=== PATIENT | male | born 1945 | race Caucasian/White ===

== ENCOUNTER 2024-08-08 19:38 | Observation (INO) | payer OTHER, SELFPAY ==
[2024-08-08] VITALS (19 sets, daily range): BP systolic 107–167; BP diastolic 38–99; BMI 39.5; BMI 37.1
[2024-08-08 12:03] LABS: % Basophils 0.3 % (0-2); % Eosinophils 3.4 % (0-6); % Immature Granulocytes 0.4 % (0-0.5); % Lymphocytes 20.5 % (20.5-51.1); % Monocytes 5.2 % (1.7-9.3); % Neutrophils 70.2 % (42.2-75.2); Absolute Eosinophils 0.3 10^3/uL (0-0.7); Absolute Lymphocytes 1.9 10^3/uL (1.2-3.4); Absolute Monocytes 0.5 10^3/uL (0.1-0.6); Absolute Neutrophils 6.5 10^3/uL (1.4-6.5); Hemoglobin 11.7 g/dL (13.0-18.0); Mean Corp Hgb Conc. 33.4 g/dL (33.0-37.0); Mean Corpuscular Hgb 28.4 pg (27.0-31.0); Mean Platelet Volume 9.5 fL (7.4-10.4); Nucleated Red Blood Cells % 0 % (-); Platelet Count 264 10^3/uL (130-400); Red Blood Cell Count 4.12 10^6/uL (4.70-6.10); Red Cell Dist. Width 13.3 % (11.5-14.5); White Blood Cell Count 9.3 10^3/uL (4.8-10.8)
[2024-08-08 12:11] LABS: ALT (SGPT) 27 U/L (0-50); AST (SGOT) 24 U/L (17-59); Albumin 3.5 g/dl (3.5-5.0); Alkaline Phosphatase 78 U/L (38-126); Blood Urea Nitrogen 25 mg/dl (9-20); Carbon Dioxide 30 mmol/L (22-30); Chloride 100 mmol/L (98-107); Estimated Creatinine Clearance 86 ml/min; Glucose 248 mg/dl (70-99); Potassium 3.5 mmol/L (3.5-5.1); Sodium 140 mmol/L (135-145); Total Bilirubin 0.3 mg/dl (0.2-1.3); Total Protein 6.5 g/dl (6.3-8.2); eGFR > 60.00
[2024-08-08 12:14] LABS: COVID-19 Antigen Negative (Negative)
[2024-08-08] MEDS: NSS 500 IV (16:26)
--- NOTE | 2024-08-08 16:54 | CM ---
Cm was consulted for placement. Due to PT not being available for placement, CM is unable to move forward with placement efforts. CM spoke with patient and son's in room. Patient lives with son who provides supervision. Son's feel that patient is
unable to care for himself and they are unable to provide care.
CM discussed SNF options. Son will consult with family regarding possible acceptable options for placement. CM will continue to follow.
--- NOTE | 2024-08-08 18:26 | ED.GENMED ---
History of Present Illness
General
Chief Complaint: Weakness
Source: patient and family
Time Seen by Provider: 08/08/24 12:51
History of Present Illness
History of Present Illness:
79-year-old male presents to the emergency room with family due to recent URI symptoms and feeling weak all over. Patient states his left leg keeps giving out. No fever or chills. Patient does not have weakness but states he just has discomfort
his knee. Patient denies any other areas of weakness numbness or tingling.
Past History
Past History
ED Past Medical History: Arrthythmia (Paroxysmal atrial fibrillation), HTN and IDDM
ED Past Surgical History: Cardiac (Radiofrequency ablation for atrial fibrillation 5-6 years ago at [facility])
Social History
Tobacco: Non-smoker
Alcohol: Occasional (rare)
Living: with family
Employment: Retired
Family History
Family History: Other (Noncontributory)
Phy Exam
Physical Exam
Physical Exam:
General: Awake, Alert, Oriented X3. No acute distress.
Vitals: unremarkable
Head: Atraumatic
Eyes: Pupils equal, EOMI
Throat: Airway intact, no exudates
Neck: Trachea midline
Lungs: Clear and equal b/l
Heart: Regular rate, no murmurs
Abd: Soft, Nontender, No pulsatile mass
Neuro: Cranial nerves intact, muscle strength equal bilaterally, cerebellar exam normal
Skin: Warm, dry, no rash
Extremities: pulses equal b/l, no edema
Course
Orders/Labs/Results
Orders:
Orders
08/08/24 11:49
COVID-19 Antigen Urgent
Source: Nasal Swab
Complete Blood Count/With Diff Urgent
Comprehensive Metabolic Panel Urgent
Influenza A+B Rapid Molecular Urgent
[place] Source: Nasal Swab
Specimen Description:
08/08/24 13:01
CT Head W/o Iv Contrast Urgent
Comment:
Reason For Exam: frequent falls
CR Chest - 2 Views Urgent
Comment:
Reason For Exam: progressive weakness
Knee, Right 4 or More Views [CR Knee- Right 4 Or More View*] Urgent
Comment:
Reason For Exam: pain, knee giving out
08/08/24 16:15
0.9% Sodium Chloride 500 ml [Nss] 500 ml IV BOLUS
08/08/24 16:16
Case Management Consult ONCE
Case Management Consult: Discharge Planning
PT Consult [Pt Eval And Treat] Urgent
Activity Level: As Tolerated
Abnormal Lab Results
08/08/24
11:49
RBC 4.12 L 10^6/uL
(4.70-6.10)
Hgb 11.7 L g/dL
(13.0-18.0)
Hct 35.0 L %
(39.0-52.0)
BUN 25 H mg/dl
(9-20)
Glucose 248 H mg/dl
(70-99)
08/08/24 11:49
08/08/24 11:49
Vital Signs
Initial and Last Documented VS:
Initial Vital Signs
Temp Pulse Resp BP Pulse Ox
98.2 F 79 15 145/64 98
08/08/24 11:42 08/08/24 11:42 08/08/24 11:42 08/08/24 11:42 08/08/24 11:42
Last Documented Vital Signs
Temp Pulse Resp BP Pulse Ox
98.2 F 86 22 128/59 97
08/08/24 11:42 08/08/24 18:00 08/08/24 18:00 08/08/24 18:00 08/08/24 18:00
MDM/Problems Addressed
Differential Diagnosis Includes:
dehydration, renal failure, electrolyte abn, subdural
MDM/Problems Addressed:
Patient presents with inability to ambulate frequent falls. No clear abnormalities noted on workup. Suspect falls are due to degenerative changes left knee. Patient cannot live alone and does not have adequate family support so we will admit him
for placement.
*Radiology
Radiology exam reviewed: radiology read reviewed
*Pulse Oximetry
Patient hypoxic: no
*Critical Care Note
Total Time (30-74mins, 75-104mins- exclusive of procedures): Not Applicable
ED Attending Note
-
Portions of this chart may have been created with voice recognition software.� Occasional wrong word or��sound alike� substitutions may have occurred due to the inherent limitations of voice recognition software.
Discharge Plan
Departure
Patient Disposition: Admit
Date of Disposition: 08/08/24
Time of Disposition: 18:26
Admit to: Med/Surg
Presentation/result/management discussed w/ accepting MD/DO: Hospitalist
Condition: Fair
Discharge Problem:
Ambulatory dysfunction, Arthritis of knee, left
Prescriptions:
No Action
insulin glargine [Lantus U-100 Insulin] 1,000 UNITS/10 ML solution
30 unit SC HS
metformin 1,000 MG tablet
1,000 mg PO BID
doxazosin 4 MG tablet
4 mg PO DAILY
hydrochlorothiazide 25 MG tablet
25 mg PO DAILY
lisinopril 40 MG tablet
40 mg PO DAILY
insulin asp prt-insulin aspart [Novolog Mix 70-30 U-100 Insuln] 1,000 UNITS/10 ML solution
60 units SC BID
atorvastatin [Lipitor] 40 mg Tablet
40 mg PO HS
acetaminophen [Tylenol] 325 mg Tablet
650 mg PO Q6HPRN PRN (Reason: mild pain)
Theragen Tablet
1 tab PO DAILY
metoprolol tartrate [Lopressor] 50 mg Tablet
50 mg PO BID
Trulicity 0.75 mg/0.5 mL Pen Injector
0.75 mg SC TO
Referrals:
NONE,* [Family Provider] -
Interventions
Interventions:
*Risk Screen - Suicide Last Done: 08/08/24 11:46
*General Assessment Last Done: 08/08/24 11:45
*Neglect/Abuse Screening Last Done: 08/08/24 11:46
ED- Fall Risk Assessment Last Done: 08/08/24 11:45
*ED COVID-19 Vaccine History Last Done: 08/08/24 11:45
ED- Cardiac Assessment Last Done: 08/08/24 11:46
ED- Neurological Assessment Last Done: 08/08/24 11:46
ED- Pulmonary Assessment Last Done: 08/08/24 11:46
Discharge Date and Time
Print Language: FRENCH
--- NOTE | 2024-08-08 18:35 | HPS.HSE ---
Family Physician
-
Family Physician: * NONE
Chief Complaint
-
weakness
History of Present Illness
Patient is a 79-year-old male with past medical history significant for hypertension, hyperlipidemia, IDDM, and paroxysmal atrial fibrillation who presented to [place] ED for evaluation of of URI symptoms that have been present for past 1-1.5
weeks and for right lower extremity weakness. Patient reports that right knee has been just giving out on him, denies any falls or trauma. Patient states he has had cough lingering for the past week to week and a half. He denies any fever, chills,
shortness of breath, chest pain, nausea, vomiting, constipation, diarrhea or urinary symptoms.
Medical History
Past Medical History
Past Medical History: Reports Other
Additional Past Medical History:
benign hypertension
hyperlipidemia
IDDM
paroxysmal atrial fibrillation
Past Surgical History: Reports Other
Additional Past Surgical History:
ablation for atrial fibrillation (11/2008)
Social History
Tobacco: Non-smoker
Alcohol: None
Drug: None
Living: With Family
Employment: Retired
Family History
Family History: Not pertinent
Allergies / Home Medications
Allergies reflects when Allergies were last updated in [facility].
Home Medications with original date entered in [facility]
Allergy/Medication List:
Allergies
Allergy/AdvReac Type Severity Reaction Status Date / Time
No Known Allergies Allergy Verified 08/08/24 11:44
Home Medications
doxazosin 4 mg tablet 4 mg PO DAILY 10/10/14
hydrochlorothiazide 25 mg tablet 25 mg PO DAILY 10/10/14
insulin aspar prt-insulin aspart 100 unit/mL (70-30) subcutaneous soln (Novolog Mix 70-30 U-100 Insuln) 60 units SC BID 10/10/14
insulin glargine 100 unit/mL subcutaneous solution (Lantus U-100 Insulin) 30 unit SC HS 10/10/14
lisinopril 40 mg tablet 40 mg PO DAILY 10/10/14
metformin 1,000 mg tablet 1,000 mg PO BID 10/10/14
acetaminophen 325 mg tablet (Tylenol) 650 mg PO Q6HPRN PRN mild pain 08/08/24
atorvastatin 40 mg tablet (Lipitor) 40 mg PO HS 08/08/24
dulaglutide 0.75 mg/0.5 mL subcutaneous pen injector (Trulicity) 0.75 mg SC TO 08/08/24
metoprolol tartrate 50 mg tablet (Lopressor) 50 mg PO BID 08/08/24
therapeutic multivitamin 1 tab PO DAILY 08/08/24
Review of Systems
-
History Source: Patient
Constitutional: Reports No Symptoms
EENT: Reports No Symptoms
Respiratory: Reports Cough
Cardiac: Reports No Symptoms
Abdomen/GI: Reports No Symptoms
: Reports No Symptoms
Musculoskeletal: Reports Joint Pain (right knee discomfort )
Skin: Reports No Symptoms
Neurological: Reports No Symptoms
Endocrine: Reports No Symptoms
Hematologic/Lymphatic: Reports No Symptoms
Psych: Reports No Symptoms
Physical Exam
Vital Signs
Vital Signs
Temp Pulse Resp BP Pulse Ox
98.2 F 86 22 128/59 97
08/08/24 11:42 08/08/24 18:00 08/08/24 18:00 08/08/24 18:00 08/08/24 18:00
Physical Exam
General: Well Developed, Well Nourished, No Apparent Distress, Comfortable and Conversant
HEENT: NormoCephalic, Moist mucous membranes, Atraumatic, [place] Conjunctivae, Nose Appears Normal and Ears Appear Normal
Respiratory: Clear and Non Labored Respirations
Cardiac: S1/S2 and Regular Rhythm; No Murmur, Rub or Gallop
Breast: Deferred by me
GI: Soft, Non Tender, Non Distended and Normal Bowel Sounds; No Organomegaly
Rectal: Deferred by Provider
Genito-urinary: Deferred by me
Musculoskeletal: No Clubbing, No Cyanosis, No Edema and Other (right knee discomfort )
Skin: Warm and IV/Catheter Site; No Rash
Neuro: Awake, Alert, AO x 3 and Nonfocal/grossly intact
Psych: Calm and Intact Judgment/Insight
Laboratory Results
-
08/08/24 11:49
08/08/24 11:49
Laboratory Results
Total Bilirubin 0.3 mg/dl (0.2-1.3) 08/08/24 11:49
AST 24 U/L (17-59) 08/08/24 11:49
ALT 27 U/L (0-50) 08/08/24 11:49
Alkaline Phosphatase 78 U/L (38-126) 08/08/24 11:49
Data Reviewed
-
Diagnostic Radiology: Report Reviewed by me (Head: Moderate left lower lobe atelectasis versus scarring. New; Right knee: Moderate tricompartmental osteoarthritis.)
CT Scan: Report Reviewed by me (Head: No acute intracranial abnormality noted. Moderate atrophy)
Lab Data: Labs Reviewed by me
Impression/Plan
-
IMPRESSION/PLAN:
#weakness
patient reports left leg keeps giving out
Right knee x-ray: Moderate tricompartmental osteoarthritis.
Head CT: No acute intracranial abnormality noted.
Moderate atrophy
- Admit to med/surg
- PT/OT consults
- case management consult
#URI Symptoms
CXR: Moderate left lower lobe atelectasis versus scarring. New
Covid and Influenza: negative
- mucinex
#benign hypertension
- continue HCTZ, lisinopril, and metoprolol
#hyperlipidemia
- continue atorvastatin
#paroxysmal atrial fibrillation
- continue metoprolol
#IDDM
- AccuCheck AC & HS
- SSI
- hold metformin
- continue dulaglutide, Novolog 70/30 and Lantus
Code status: Full
DVT Prophylaxis: Lovenox sq
--- NOTE | 2024-08-08 18:58 | W.PN.UPDATE ---
Update Note
Progress Note Update
This is an addendum to the H&P written by Martha Flores on 08/08/2024. Patient seen and examined independently with PAYABLE PROCESSOR.
79-year-old male past medical history of paroxysmal atrial fibrillation status post ablation, diabetes, hyperlipidemia, hypertension, presenting with weakness and left leg keeps giving out with knee discomfort. Also with cough for the past week.
Vital signs normal. Labs unremarkable. Chest x-ray unremarkable for from atelectasis or scarring. COVID, influenza negative. CT head no acute abnormality. Knee x-ray shows compartmental osteoarthritis.
IV fluids given. PT/OT, case management for placement.
[2024-08-08 21:52] LABS: Glucose - Point of Care 294 mg/dl (70-99)
[2024-08-08] MEDS: LIPITOR 40 MG PO (22:01)
[2024-08-08] MEDS: LOPRESSOR 50 MG PO (22:01)
[2024-08-08] MEDS: LANTUS 0.3 UNITS SC (22:01)
[2024-08-08] MEDS: GLUCOPHAGE 1000 MG PO (22:01)
[2024-08-08] MEDS: NOVOLOG MIX 70/30 FLEXPEN SC (22:04)
[2024-08-08] MEDS: MUCINEX 1200 MG PO (22:59)
[2024-08-08] MEDS: DESENEX/MITRAZOL/ZEASORB 1 APPLIC TOPICAL (23:35)
[2024-08-09] MEDS: ROBITUSSIN DM 10 ML PO ×2 (04:50→17:53)
[2024-08-09 08:02] VITALS: BP 150/74
[2024-08-09 08:09] LABS: Glucose - Point of Care 197 mg/dl (70-99)
--- NOTE | 2024-08-09 08:40 | W.PN.HOSP.TC ---
Addendum entered and electronically signed by Debbie Pineda MD 08/09/24 14:25:
I saw and evaluated the patient. I reviewed the resident�s note and agree with findings and plan as documented in the resident�s note.
A/P:
# RLE weakness, likely due to progression of chronic neuropathy
Right knee x-ray: Moderate tricompartmental osteoarthritis.
Head CT: No acute intracranial abnormality noted. Moderate atrophy
Pt declined MRI eval at this time, low priority anyway
PT OT eval for dispo planning
# PHYSICIAN CODER URI Symptoms, much resolved
CXR: Moderate left lower lobe atelectasis versus scarring. New
Covid and Influenza negative
mucinex
# benign hypertension
continue PHYSICIAN CODER HCTZ, lisinopril, metoprolol
# hyperlipidemia
continue atorvastatin
# paroxysmal atrial fibrillation
continue metoprolol
# IDDM
Cont PHYSICIAN CODER insulin
AccuCheck and ISS
PHYSICIAN CODER on metformin
Code status: Full
DVT Prophylaxis: Lovenox sq
Original Note:
Today's Communication/Plan
-
Awaiting placement
Assessment / Plan
Assessment / Plan
79-year-old male past medical history of paroxysmal atrial fibrillation status post ablation, diabetes, hyperlipidemia, hypertension, presenting with weakness and left leg keeps giving out with knee discomfort. Also with cough and URI symptoms for
the past 1 and 1/2 week.
Impression/plan
# Ambulatory dysfunction
Patient with history of frequent falls at home. No history of syncope.
His diabetic neuropathy might be contributing for his frequent falls.
patient reports right leg keeps giving out
Right knee x-ray: Moderate tricompartmental osteoarthritis.
Head CT: No acute intracranial abnormality noted.
Moderate atrophy
PT/OT consult�recommend SNF
case management consult
#URI Symptoms
CXR: Moderate left lower lobe atelectasis versus scarring
White count normal, afebrile
Covid and Influenza: negative
mucinex
DuoNebs as needed
#IDDM
AccuCheck AC & HS
SSI
Check HbA1c
Patient plan on consulting casting machine service operator as outpatient
Continue metformin
continue dulaglutide, Novolog 70/30 and Lantus
# Essential hypertension
continue HCTZ, lisinopril, and metoprolol
#Hyperlipidemia
continue atorvastatin
#Paroxysmal atrial fibrillation
continue metoprolol
Code status: Full
DVT Prophylaxis: Lovenox sc
Anticipated Discharge: 24 - 48 hours
Subjective/Interval History
-
Date of Service: August 09, 2024
Patient reports that his cough has improved.
Objective Data
-
Vital Signs:
Vital Signs
Temp Pulse Resp BP Pulse Ox
98.3 F 86 18 150/74 98
08/09/24 08:02 08/09/24 08:02 08/09/24 08:02 08/09/24 08:02 08/09/24 08:02
I&O
08/08/24 08/09/24 08/10/24
06:59 06:59 06:59
Output Total 650 / 650
Balance -650 / -650
Review of Systems
-
All other systems: Reviewed and negative (With history)
Physical Exam
-
General: No Apparent Distress
HEENT: Normocephalic and Atraumatic
Respiratory: Clear to Auscultation
Cardiac: Regular Rhythm and S1/S2
GI: Soft, Nontender, Nondistended and Normal Bowel Sounds
Skin: Warm, Dry and Other (Small abrasion on the right knee)
Neuro: Awake, Alert, Oriented and AO x 3
Psych: Calm
[2024-08-09] MEDS: ORETIC 25 MG PO (09:18)
[2024-08-09] MEDS: NOVOLOG MIX 70/30 FLEXPEN 60 UNITS SC ×2 (09:18→17:48)
[2024-08-09] MEDS: LOPRESSOR 50 MG PO ×2 (09:18→19:56)
[2024-08-09] MEDS: ZESTRIL 40 MG PO (09:18)
[2024-08-09] MEDS: CARDURA 4 MG PO (09:18)
[2024-08-09] MEDS: THERAGRAN 1 TABLET PO (09:18)
[2024-08-09] MEDS: GLUCOPHAGE 1000 MG PO ×2 (09:18→17:48)
[2024-08-09 10:00] VITALS: BP 164/81; PULSE 88; O2SAT 95
[2024-08-09 10:22] VITALS: BP 164/81; PULSE 88; O2SAT 95
--- NOTE | 2024-08-09 11:10 | WOUNDNOTE ---
ABDOMEN (LOWER)/GROIN
--- NOTE | 2024-08-09 11:10 | WOUNDNOTE ---
L 2ND TOE (DORSAL)
--- NOTE | 2024-08-09 11:12 | WOUNDNOTE ---
[facility] RN note: Patient admitted with weakness, falls. He lives at home with sons. Patient may need rehab when discharged.
See H&P for complete history.
PMH: HTN, IDDM, a fib, obesity.
Wound Location and type/assessment: Patient admitted with: abdominal/groin MASD, yeast rash from moisture. R sacral/iliac small rash patch. Miconazole powder on order. Coccyx mild MASD. Bilateral knee and elbow small dry scabbed abrasions. L dorsal
2nd toe small dry scabbed abrasion. +1 LE edema. +Palpable pedal pulses. Patient stated he tried knee high compression socks but cannot put them on himself.
Appetite: good.
Pressure redistribution devices in place: [employer] Accumax. Patient stood with walker and minimal assistance.
Plan: Non woven gauze applied to abdominal folds. Air chair cushion given. Discussed with AUDRA Mazariegos.
Will confirm order with Dr. Pineda and discussed with AUDRA Mazariegos.
Care plan to be updated. Will sign off. Call if needed.
[2024-08-09] MEDS: DESENEX/MITRAZOL/ZEASORB 1 APPLIC TOPICAL ×2 (11:48→19:57)
[2024-08-09 11:59] LABS: Glucose - Point of Care 174 mg/dl (70-99)
[2024-08-09] MEDS: NOVOLOG FLEXPEN-LOW RESISTANCE 1 UNITS SC (12:58)
[2024-08-09 14:24] LABS: Glycohemoglobin (HgbA1c) 6.9 % (4.0-5.6)
--- NOTE | 2024-08-09 14:36 | W.PN.UPDATE ---
Update Note
Progress Note Update
Spoke to patient's family over phone�Mr. Cory Magana (son) and updated him about the patient's condition and progress.
Also let him know that PT OT recommended SNF placement. His son stated that they have researched few places, would like to see if they could get the bed and the below 3 [facility], [facility].
--- NOTE | 2024-08-09 14:42 | CM ---
Addendum entered by Daphne Kerr 08/09/24 14:47:
CM received call from Anjali/EDGARDO informing of her visit to pt today to assess his capability to care for himself. Anjali could not disclose who made report and will meet w/ CM for requesting clinicals.
Original Note:
Chart reviewed for d/c planning. Pt is currently being recommended for skilled rehab at this time.
CM spoke w/ pt's son, Cory, to discuss recommendation. Cory stated his brother researched some facilities and for CM to refer as follows,
[facility], [facility], [facility], [facility], [facility], and [facility].
CM sent referrals via [facility]. [facility] does not utilize [facility] for referrals, CM reached out to [facility] admissions and awaiting response.
Will need insurance auth
Plan: SNF; pending accepting facility and auth
[2024-08-09 15:41] VITALS: BP 141/62
[2024-08-09 17:48] LABS: Glucose - Point of Care 147 mg/dl (70-99)
[2024-08-09] MEDS: NOVOLOG FLEXPEN-LOW RESISTANCE SC (17:48)
[2024-08-09] MEDS: LOVENOX 40 MG SC (17:48)
[2024-08-09] MEDS: LIPITOR 40 MG PO (19:55)
[2024-08-09 22:22] LABS: Glucose - Point of Care 43 mg/dl (70-99)
[2024-08-09] MEDS: LANTUS SC (22:36)
[2024-08-09 22:47] LABS: Glucose - Point of Care 47 mg/dl (70-99)
[2024-08-09] MEDS: DEXTROSE 50% SYRINGE 12.5 GRAMS IV (22:54)
[2024-08-09 23:00] VITALS: BP 123/51
--- NOTE | 2024-08-09 23:05 | GLUCOSE ---
during HS accuchecks, pt's blood sugar found to be 43. Per protocol, pt given 4 oz orange juice, was told we would recheck his sugar in 15 minutes, pt unhappy with that but complied with recheck. Blood sugar again, 47. Pt refusing another orange
juice, stating he feels fine. Educated patient on importance of low blood sugar. Pt unhappily agreed to 1/2 amp of D50. Blood sugar rechecked 15 minutes later, 92. Plan of care ongoing.
[2024-08-09 23:17] LABS: Glucose - Point of Care 92 mg/dl (70-99)
[2024-08-10 03:33] LABS: Glucose - Point of Care 55 mg/dl (70-99)
[2024-08-10] MEDS: DEXTROSE 50% SYRINGE 12.5 GRAMS IV (03:34)
[2024-08-10 03:59] LABS: Glucose - Point of Care 89 mg/dl (70-99)
--- NOTE | 2024-08-10 03:59 | PTCARENOTE ---
0300 blood sugar 55, pt refusing to drink any orange juice due to wanting to get some sleep. 1/2 amp of D50 given per orders. Repeat BS 89. Plan of care on going
[2024-08-10 07:50] LABS: % Basophils 0.7 % (0-2); % Immature Granulocytes 0.2 % (0-0.5); % Lymphocytes 33.7 % (20.5-51.1); % Monocytes 8.1 % (1.7-9.3); % Neutrophils 53.3 % (42.2-75.2); Absolute Eosinophils 0.2 10^3/uL (0-0.7); Absolute Monocytes 0.5 10^3/uL (0.1-0.6); Absolute Neutrophils 3.2 10^3/uL (1.4-6.5); Hematocrit 33.4 % (39.0-52.0); Hemoglobin 11.2 g/dL (13.0-18.0); Mean Corp Hgb Conc. 33.5 g/dL (33.0-37.0); Mean Corpuscular Hgb 28.1 pg (27.0-31.0); Mean Corpuscular Volume 83.7 fL (80.0-94.0); Mean Platelet Volume 9.9 fL (7.4-10.4); Nucleated Red Blood Cells % 0 % (-); Platelet Count 257 10^3/uL (130-400); Red Blood Cell Count 3.99 10^6/uL (4.70-6.10); Red Cell Dist. Width 13.1 % (11.5-14.5)
[2024-08-10 07:54] VITALS: BP 154/78
[2024-08-10 07:59] LABS: Glucose - Point of Care 91 mg/dl (70-99)
[2024-08-10 08:15] LABS: ALT (SGPT) 26 U/L (0-50); AST (SGOT) 26 U/L (17-59); Alkaline Phosphatase 73 U/L (38-126); Blood Urea Nitrogen 17 mg/dl (9-20); Calcium 8.5 mg/dl (8.4-10.2); Carbon Dioxide 27 mmol/L (22-30); Chloride 103 mmol/L (98-107); Estimated Creatinine Clearance 94 ml/min; Glucose 73 mg/dl (70-99); Potassium 3.5 mmol/L (3.5-5.1); Sodium 140 mmol/L (135-145); Total Bilirubin 0.3 mg/dl (0.2-1.3); Total Protein 5.7 g/dl (6.3-8.2); eGFR > 60.00
[2024-08-10] MEDS: NOVOLOG FLEXPEN-LOW RESISTANCE SC ×3 (08:38→17:17)
[2024-08-10] MEDS: ORETIC 25 MG PO (08:39)
[2024-08-10] MEDS: CARDURA 4 MG PO (08:40)
[2024-08-10] MEDS: LOPRESSOR 50 MG PO ×2 (08:40→20:18)
[2024-08-10] MEDS: THERAGRAN 1 TABLET PO (08:40)
[2024-08-10] MEDS: GLUCOPHAGE 1000 MG PO ×2 (08:40→17:18)
[2024-08-10] MEDS: ZESTRIL 40 MG PO (08:40)
[2024-08-10] MEDS: DESENEX/MITRAZOL/ZEASORB 1 APPLIC TOPICAL ×2 (08:42→20:17)
[2024-08-10] MEDS: NOVOLOG MIX 70/30 FLEXPEN 60 UNITS SC ×2 (08:43→17:18)
--- NOTE | 2024-08-10 08:45 | W.PN.HOSP.TC ---
Addendum entered and electronically signed by Vania Will MD 08/10/24 15:53:
I saw and evaluated the patient independently. I reviewed the resident�s note and agree with findings and plan as documented by Dr. Mendez.
GENERAL: well developed, well nourished, male in no apparent distress
HEENT: NC/AT
HEART: regular rate and rhythm, +S1, +S2
LUNGS : clear to auscultation bilaterally
ABDOM: soft, nontender, nondistended, + bowel sounds
EXT: no cyanosis, clubbing-- edema 1+ bilateral LE edema
NEUROLOGIC: grossly intact
Ambulatory dysfunction--with frequent falls--no prodrome of syncope---His diabetic neuropathy might be contributing for his frequent falls?--patient reports right leg keeps giving out--Right knee x-ray: Moderate tricompartmental osteoarthritis--Head
CT: No acute intracranial abnormality noted with Moderate atrophy--apprec PT/OT--SNF
URI Symptoms--post nasal drip, allergies?--CXR neg--WBC WNL, afebrile--Covid and Influenza: negative --cont mucinex and duonebs
IDDM--AccuCheck AC & HS--[id number]--Patient plan on consulting iap displays analyst as outpatient--Continue metformin--continue dulaglutide, Novolog 70/30 and Lantus
Essential hypertension-- continue HCTZ, lisinopril, and metoprolol
Hyperlipidemia-- continue atorvastatin
Paroxysmal atrial fibrillation--continue metoprolol --not on anticoagulation presumed due to falls
Code status: Full
DVT Proph: Lovenox sc
Original Note:
Today's Communication/Plan
-
Awaiting placement at SNF
Assessment / Plan
Assessment / Plan
79-year-old male past medical history of paroxysmal atrial fibrillation status post ablation, diabetes, hyperlipidemia, hypertension, presenting with weakness and left leg keeps giving out with knee discomfort. Also with cough and URI symptoms for
the past 1 and 1/2 week.
Impression/plan
# Ambulatory dysfunction
Patient with history of frequent falls at home. No history of syncope.
His diabetic neuropathy might be contributing for his frequent falls.
patient reports right leg keeps giving out
Right knee x-ray: Moderate tricompartmental osteoarthritis.
Head CT: No acute intracranial abnormality noted.
Moderate atrophy
PT/OT consult�recommended SNF
Awaiting placement
#URI Symptoms
CXR: Moderate left lower lobe atelectasis versus scarring
White count normal, afebrile
Covid and Influenza: negative
mucinex
DuoNebs as needed
#IDDM
AccuCheck AC & HS
SSI
[id number]
Patient plan on consulting iap displays analyst as outpatient
Continue metformin
continue dulaglutide, Novolog 70/30 and Lantus
# Essential hypertension
continue HCTZ, lisinopril, and metoprolol
#Hyperlipidemia
continue atorvastatin
#Paroxysmal atrial fibrillation
continue metoprolol
Code status: Full
DVT Prophylaxis: Lovenox sc
Anticipated Discharge: 24 - 48 hours
Subjective/Interval History
-
Date of Service: August 10, 2024
No acute overnight events. Still has cough.
Objective Data
-
Labs:
Laboratory Results
08/10/24
06:55
WBC 6.0
Hgb 11.2 L
Hct 33.4 L
Plt Count 257
Sodium 140
Potassium 3.5
Chloride 103
Carbon Dioxide 27
BUN 17
Creatinine 1.0
Glucose 73
Calcium 8.5
Total Bilirubin 0.3
AST 26
ALT 26
Alkaline Phosphatase 73
Vital Signs:
Vital Signs
Temp Pulse Resp BP Pulse Ox
98.2 F 81 18 154/78 97
08/10/24 07:54 08/10/24 08:39 08/10/24 07:54 08/10/24 08:39 08/10/24 07:54
I&O
08/09/24 08/10/24 08/11/24
06:59 06:59 06:59
Output Total 650 / 650 1025 / 1025
Balance -650 / -650 -1025 / -1025
Review of Systems
-
All other systems: Reviewed and negative
Physical Exam
-
General: No Apparent Distress
HEENT: Normocephalic and Atraumatic
Respiratory: Clear to Auscultation
Cardiac: Regular Rhythm and S1/S2
GI: Soft, Nontender, Nondistended and Normal Bowel Sounds
Skin: Warm, Dry and Other (Abrasion on the right knee)
Neuro: Awake, Alert, Oriented and AO x 3
[2024-08-10 12:02] LABS: Glucose - Point of Care 134 mg/dl (70-99)
--- NOTE | 2024-08-10 15:47 | CM ---
Patient seen at bedside with physicians. CM called to patient son and reviewed [facility] accepting patient, [facility] did not and no other facility responded. Patient son agreed that CM could start auth request. CM will start auth request to [employer].
CM will continue to follow for discharge planning needs.
Plan; SNF; pending auth
[2024-08-10 16:06] VITALS: BP 137/71
[2024-08-10 16:49] LABS: Glucose - Point of Care 139 mg/dl (70-99)
[2024-08-10] MEDS: LOVENOX 40 MG SC (17:18)
[2024-08-10] MEDS: LIPITOR 40 MG PO (20:17)
[2024-08-10] MEDS: LANTUS SC ×2 (20:18→22:19)
[2024-08-10 22:01] LABS: Glucose - Point of Care 102 mg/dl (70-99)
[2024-08-10 23:52] VITALS: BP 106/44
[2024-08-11 07:40] VITALS: BP 149/67
[2024-08-11 07:50] LABS: Glucose - Point of Care 152 mg/dl (70-99)
[2024-08-11] MEDS: ZESTRIL 40 MG PO (08:14)
[2024-08-11] MEDS: GLUCOPHAGE 1000 MG PO ×2 (08:14→17:08)
[2024-08-11] MEDS: THERAGRAN 1 TABLET PO (08:14)
[2024-08-11] MEDS: LOPRESSOR 50 MG PO ×2 (08:15→19:38)
[2024-08-11] MEDS: CARDURA 4 MG PO (08:15)
[2024-08-11] MEDS: ORETIC 25 MG PO (08:15)
[2024-08-11] MEDS: NOVOLOG FLEXPEN-LOW RESISTANCE 1 UNITS SC (08:16)
[2024-08-11] MEDS: DESENEX/MITRAZOL/ZEASORB 1 APPLIC TOPICAL ×2 (08:16→19:39)
[2024-08-11] MEDS: NOVOLOG MIX 70/30 FLEXPEN 60 UNITS SC ×2 (08:17→17:09)
[2024-08-11 08:23] LABS: Hematocrit 34.8 % (39.0-52.0); Hemoglobin 11.8 g/dL (13.0-18.0); Mean Corp Hgb Conc. 33.9 g/dL (33.0-37.0); Mean Corpuscular Hgb 28.6 pg (27.0-31.0); Mean Corpuscular Volume 84.3 fL (80.0-94.0); Mean Platelet Volume 9.8 fL (7.4-10.4); Platelet Count 275 10^3/uL (130-400); Red Blood Cell Count 4.13 10^6/uL (4.70-6.10); Red Cell Dist. Width 13.1 % (11.5-14.5); White Blood Cell Count 6.1 10^3/uL (4.8-10.8)
--- NOTE | 2024-08-11 08:34 | W.PN.HOSP.TC ---
Addendum entered and electronically signed by Vania Will MD 08/11/24 16:05:
I saw and evaluated the patient independently. I reviewed the resident�s note and agree with findings and plan as documented by Dr. Mendez.
GENERAL: well developed, well nourished, male in no apparent distress
HEENT: NC/AT
HEART: regular rate and rhythm, +S1, +S2
LUNGS : clear to auscultation bilaterally
ABDOM: soft, nontender, nondistended, + bowel sounds
EXT: no cyanosis, clubbing-- edema 1+ bilateral LE edema
NEUROLOGIC: grossly intact
Ambulatory dysfunction--with frequent falls--no prodrome of syncope---His diabetic neuropathy might be contributing for his frequent falls?--patient reports right leg keeps giving out--Right knee x-ray: Moderate tricompartmental osteoarthritis--Head
CT: No acute intracranial abnormality noted with Moderate atrophy--apprec PT/OT--re-eval since pt wanted to go home still recommends SNF
URI Symptoms--post nasal drip, allergies?--CXR neg--WBC WNL, afebrile--Covid and Influenza: negative --cont mucinex and duonebs
IDDM--AccuCheck AC & HS--[id number]--Patient plan on consulting play therapist as outpatient--Continue metformin--continue dulaglutide, Novolog 70/30 and Lantus
Essential hypertension-- continue HCTZ, lisinopril, and metoprolol
Hyperlipidemia-- continue atorvastatin
Paroxysmal atrial fibrillation--continue metoprolol --not on anticoagulation presumed due to falls
Code status: Full
DVT Proph: Lovenox sc
Original Note:
Today's Communication/Plan
-
PT/OT reevaluation.
Assessment / Plan
Assessment / Plan
79-year-old male past medical history of paroxysmal atrial fibrillation status post ablation, diabetes, hyperlipidemia, hypertension, presenting with weakness and left leg keeps giving out with knee discomfort. Also with cough and URI symptoms for
the past 1 and 1/2 week.
Awaiting placement. Today patient requested about going home instead of SNF and that he could manage with walker.
Impression/plan
# Ambulatory dysfunction
Patient with history of frequent falls at home. No history of syncope.
His diabetic neuropathy might be contributing for his frequent falls.
patient reports right leg keeps giving out
Right knee x-ray: Moderate tricompartmental osteoarthritis.
Head CT: No acute intracranial abnormality noted.
Moderate atrophy
PT/OT consult�recommended SNF
#URI Symptoms
CXR: Moderate left lower lobe atelectasis versus scarring
White count normal, afebrile
Covid and Influenza: negative
Upper airway cough syndrome likely from postnasal drip
mucinex
DuoNebs as needed
#IDDM
AccuCheck AC & HS
SSI
[id number]
Patient plan on consulting play therapist as outpatient
Continue metformin
continue dulaglutide, Novolog 70/30 and Lantus
# Essential hypertension
continue HCTZ, lisinopril, and metoprolol
#Hyperlipidemia
continue atorvastatin
#Paroxysmal atrial fibrillation
continue metoprolol
Code status: Full
DVT Prophylaxis: Lovenox sc
Anticipated Discharge: 24 - 48 hours
Subjective/Interval History
-
Date of Service: August 11, 2024.
Objective Data
-
Labs:
Laboratory Results
08/11/24
07:34
WBC 6.1
Hgb 11.8 L
Hct 34.8 L
Plt Count 275
Sodium Pending
Potassium Pending
Chloride Pending
Carbon Dioxide Pending
BUN Pending
Creatinine Pending
Glucose Pending
Calcium Pending
Vital Signs:
Vital Signs
Temp Pulse Resp BP Pulse Ox
98.6 F 78 20 149/67 97
08/10/24 23:52 08/11/24 08:15 08/10/24 23:52 08/11/24 08:15 08/10/24 23:52
I&O
08/10/24 08/11/24 08/12/24
06:59 06:59 06:59
Intake Total 480 / 480
Output Total 1025 / 1025 150 / 150
Balance -1025 / -1025 330 / 330
Physical Exam
-
General: No Apparent Distress
HEENT: Normocephalic and Atraumatic
Respiratory: Clear to Auscultation
Cardiac: Regular Rhythm and S1/S2
GI: Soft, Nontender, Nondistended and Normal Bowel Sounds
Skin: Warm and Dry
Neuro: Awake, Alert, Oriented and AO x 3
Psych: Calm
[2024-08-11 08:41] LABS: Blood Urea Nitrogen 17 mg/dl (9-20); Carbon Dioxide 29 mmol/L (22-30); Chloride 100 mmol/L (98-107); Estimated Creatinine Clearance 85 ml/min; Glucose 146 mg/dl (70-99); Potassium 3.6 mmol/L (3.5-5.1); Sodium 137 mmol/L (135-145); eGFR > 60.00
--- NOTE | 2024-08-11 09:09 | CM ---
Addendum entered by Alycia Knutson 08/11/24 16:43:
CM called patient son Issa and VM left about OBS/LOCO form. Patient seen by therapy today and they are recommending SNF and home alone is not considered safe. Patient son also updated via message about lack of available bed at this time. CM
will continue to follow for discharge planning needs.
Plan; SNF; needs auth
Original Note:
CM called to [facility] and they no longer have a male bed. CM spoke with patient son and added 2 more SNF referrals; [facility] and [facility]. CM sent referrals and called to [facility] to review options. CM will need to apply for
auth. CM will continue to follow for discharge planning needs.
Plan; SNF
[2024-08-11 11:50] LABS: Glucose - Point of Care 85 mg/dl (70-99)
[2024-08-11] MEDS: NOVOLOG FLEXPEN-LOW RESISTANCE SC ×2 (12:05→17:05)
[2024-08-11 13:54] VITALS: BP 128/57; BP 146/61; PULSE 76; O2SAT 98
[2024-08-11 13:58] VITALS: BP 128/57; BP 146/61; PULSE 77; O2SAT 98
[2024-08-11 15:47] VITALS: BP 139/67
[2024-08-11 16:55] LABS: Glucose - Point of Care 147 mg/dl (70-99)
[2024-08-11] MEDS: LOVENOX 40 MG SC (17:08)
[2024-08-11] MEDS: LIPITOR 40 MG PO (19:38)
[2024-08-11 21:55] LABS: Glucose - Point of Care 34 mg/dl (70-99)
[2024-08-11 22:17] LABS: Glucose - Point of Care 48 mg/dl (70-99)
--- NOTE | 2024-08-11 22:28 | PTCARENOTE ---
Pt.'s HS blood sugar found to be 34. OJ provided to pt. per protocol and provider notified. Upon recheck, blood sugar found to be 48. Provider notified and more juice provided to pt. Pt. stated that he 'would drink it when he could' and that he
'really did not want everyone to keep bothering him.' Education provided to pt. regarding risks of hypoglycemia/ increased fall risks. Patient stated that he understood. Will recheck per protocol. Plan of care continues.
[2024-08-11 22:41] LABS: Glucose - Point of Care 62 mg/dl (70-99)
[2024-08-11 23:30] VITALS: BP 148/69
[2024-08-12 00:09] LABS: Glucose - Point of Care 84 mg/dl (70-99)
[2024-08-12 02:49] LABS: Glucose - Point of Care 129 mg/dl (70-99)
[2024-08-12 05:03] VITALS: BMI 36.4
--- NOTE | 2024-08-12 05:44 | PTCARENOTE ---
Patient with 3 episodes of large, loose, brown stool overnight. Provider notified and stool sample ordered and sent to lab. Plan of care continues.
--- NOTE | 2024-08-12 06:55 | W.PN.UPDATE ---
Update Note
Progress Note Update
RN notified HOSTLER HELPER, patient had 3 large loose stools overnight. no other complaints. will order Norovirus, pending labs.
[2024-08-12 07:47] VITALS: BP 151/77
[2024-08-12 07:53] LABS: Hematocrit 33.8 % (39.0-52.0); Hemoglobin 11.3 g/dL (13.0-18.0); Mean Corp Hgb Conc. 33.4 g/dL (33.0-37.0); Mean Corpuscular Hgb 28.2 pg (27.0-31.0); Mean Corpuscular Volume 84.3 fL (80.0-94.0); Mean Platelet Volume 9.4 fL (7.4-10.4); Platelet Count 250 10^3/uL (130-400); Red Blood Cell Count 4.01 10^6/uL (4.70-6.10); Red Cell Dist. Width 13.2 % (11.5-14.5); White Blood Cell Count 5.9 10^3/uL (4.8-10.8)
[2024-08-12 08:16] LABS: Blood Urea Nitrogen 18 mg/dl (9-20); Calcium 8.9 mg/dl (8.4-10.2); Carbon Dioxide 24 mmol/L (22-30); Chloride 103 mmol/L (98-107); Estimated Creatinine Clearance 93 ml/min; Glucose 168 mg/dl (70-99); Potassium 4.1 mmol/L (3.5-5.1); Sodium 135 mmol/L (135-145); eGFR > 60.00
[2024-08-12 08:42] LABS: Glucose - Point of Care 190 mg/dl (70-99)
[2024-08-12] MEDS: NOVOLOG FLEXPEN-LOW RESISTANCE 1 UNITS SC ×2 (09:20→13:07)
[2024-08-12] MEDS: LOPRESSOR 50 MG PO ×2 (09:21→20:00)
[2024-08-12] MEDS: CARDURA 4 MG PO (09:22)
[2024-08-12] MEDS: GLUCOPHAGE 1000 MG PO ×2 (09:22→18:12)
[2024-08-12] MEDS: ORETIC 25 MG PO (09:22)
[2024-08-12] MEDS: NOVOLOG MIX 70/30 FLEXPEN 60 UNITS SC (09:22)
[2024-08-12] MEDS: THERAGRAN 1 TABLET PO (09:23)
[2024-08-12] MEDS: ZESTRIL 40 MG PO (09:28)
[2024-08-12] MEDS: MUCINEX 1200 MG PO ×2 (09:39→21:31)
[2024-08-12] MEDS: DESENEX/MITRAZOL/ZEASORB 1 APPLIC TOPICAL ×2 (09:43→19:59)
--- NOTE | 2024-08-12 11:12 | W.PN.HOSP.TC ---
Addendum entered and electronically signed by Vania Will MD 08/12/24 18:19:
I saw and evaluated the patient independently. I reviewed the resident�s note and agree with findings and plan as documented by Dr. Mendez.
GENERAL: well developed, well nourished, male in no apparent distress
HEENT: NC/AT
HEART: regular rate and rhythm, +S1, +S2
LUNGS : clear to auscultation bilaterally
ABDOM: soft, nontender, nondistended, + bowel sounds
EXT: no cyanosis, clubbing-- edema 1+ bilateral LE edema
NEUROLOGIC: grossly intact
Ambulatory dysfunction--with frequent falls--no prodrome of syncope---His diabetic neuropathy might be contributing for his frequent falls?--patient reports right leg keeps giving out--Right knee x-ray: Moderate tricompartmental osteoarthritis--Head
CT: No acute intracranial abnormality noted with moderate atrophy--apprec PT/OT--re-eval, since pt wanted to go home, still recommends SNF
URI Symptoms--post nasal drip, allergies?--CXR neg--WBC WNL, afebrile--Covid and Influenza: negative --cont mucinex and duonebs
diarrhea--neg for C. diff and norovirus
IDDM--AccuCheck AC & HS--[id number]-5.9--Patient plan on consulting supervisor maintenance as outpatient--Continue metformin--continue dulaglutide, Novolog 70/30 and Lantus
Essential hypertension-- continue HCTZ, lisinopril, and metoprolol
Hyperlipidemia-- continue atorvastatin
Paroxysmal atrial fibrillation--continue metoprolol --not on anticoagulation presumed due to falls
Code status: Full
DVT Proph: Lovenox sc
Original Note:
Today's Communication/Plan
-
Awaiting SNF placement
Assessment / Plan
Assessment / Plan
79-year-old male past medical history of paroxysmal atrial fibrillation status post ablation, diabetes, hyperlipidemia, hypertension, presenting with weakness and left leg keeps giving out with knee discomfort. Also with cough and URI symptoms for
the past 1 and 1/2 week.
Awaiting placement at SNF
Impression/plan
# Ambulatory dysfunction
Patient with history of frequent falls at home. No history of syncope.
His diabetic neuropathy might be contributing for his frequent falls.
patient reports right leg keeps giving out
Right knee x-ray: Moderate tricompartmental osteoarthritis.
Head CT: No acute intracranial abnormality noted.
Moderate atrophy
PT/OT consult�recommended SNF
#Diarrhea
3 episodes of watery stools yesterday, nonbloody.
White count normal, patient is afebrile
Stool sent for norovirus, C. difficile which came back negative.
Patient does not appear dehydrated.
Symptomatic management
Monitor.
#URI Symptoms
CXR: Moderate left lower lobe atelectasis versus scarring
White count normal, afebrile
Covid and Influenza: negative
Upper airway cough syndrome likely from postnasal drip
mucinex
DuoNebs as needed
#IDDM
AccuCheck AC & HS
SSI
[id number]
Patient plan on consulting supervisor maintenance as outpatient
Continue metformin
continue dulaglutide, Novolog 70/30 and Lantus
# Essential hypertension
continue HCTZ, lisinopril, and metoprolol
#Hyperlipidemia
continue atorvastatin
#Paroxysmal atrial fibrillation
continue metoprolol
Code status: Full
DVT Prophylaxis: Lovenox sc
Anticipated Discharge: 24 - 48 hours
Subjective/Interval History
-
Date of Service: August 12, 2024
Patient reports having 3 large liquidy bowel movements yesterday night. Nothing in the morning.
Patient does not report any abdominal pain, fever/chills, nausea/vomiting.
Objective Data
-
Labs:
Laboratory Results
08/12/24
07:36
WBC 5.9
Hgb 11.3 L
Hct 33.8 L
Plt Count 250
Sodium 135
Potassium 4.1
Chloride 103
Carbon Dioxide 24
BUN 18
Creatinine 1.0
Glucose 168 H
Calcium 8.9
Vital Signs:
Vital Signs
Temp Pulse Resp BP Pulse Ox
98.1 F 81 18 151/77 96
08/12/24 07:47 08/12/24 09:21 08/12/24 07:47 08/12/24 09:21 08/12/24 07:47
I&O
08/11/24 08/12/24 08/13/24
06:59 06:59 06:59
Intake Total 480 / 480 1680 / 1680
Output Total 150 / 150 300 / 300
Balance 330 / 330 1380 / 1380
Review of Systems
-
All other systems: Reviewed and negative (As per history)
Physical Exam
-
General: No Apparent Distress
HEENT: Normocephalic and Atraumatic
Respiratory: Clear to Auscultation
Cardiac: Regular Rhythm and S1/S2
GI: Soft, Nontender, Nondistended and Normal Bowel Sounds
Skin: Warm and Dry
Neuro: Awake, Alert, Oriented and AO x 3
Psych: Calm
[2024-08-12 12:18] LABS: Glucose - Point of Care 191 mg/dl (70-99)
--- NOTE | 2024-08-12 14:16 | CM ---
Addendum entered by Alycia Knutson 08/12/24 15:32:
CM called to patient family and sent additional referrals to SNF options; [facility], [facility], [facility], [facility], [facility], [facility]. Await
responses.
Original Note:
Patient seen at bedside with physician. Patient understanding that CM is still looking for beds. Patient seemed to understand he is unsafe for discharge home at this time. CM will call to patient family to review options for expanding search. CM
will continue to follow for discharge planning needs.
Plan; SNF
[2024-08-12 15:57] VITALS: BP 109/66
[2024-08-12 16:45] LABS: Glucose - Point of Care 190 mg/dl (70-99)
[2024-08-12] MEDS: NOVOLOG FLEXPEN-LOW RESISTANCE 190 UNITS SC (18:11)
[2024-08-12] MEDS: LOVENOX 40 MG SC (18:13)
[2024-08-12] MEDS: NOVOLOG MIX 70/30 FLEXPEN 45 UNITS SC (18:13)
[2024-08-12] MEDS: NOVOLOG MIX 70/30 FLEXPEN SC (18:19)
[2024-08-12] MEDS: LIPITOR 40 MG PO (20:00)
[2024-08-12 21:06] LABS: Glucose - Point of Care 176 mg/dl (70-99)
[2024-08-12 23:35] VITALS: BP 135/61
[2024-08-13 06:17] VITALS: BMI 36.3
[2024-08-13 07:55] VITALS: BP 139/63
[2024-08-13 08:06] LABS: Glucose - Point of Care 86 mg/dl (70-99)
[2024-08-13 08:07] LABS: Hematocrit 32.4 % (39.0-52.0); Hemoglobin 10.9 g/dL (13.0-18.0); Mean Corp Hgb Conc. 33.6 g/dL (33.0-37.0); Mean Corpuscular Hgb 28.5 pg (27.0-31.0); Mean Corpuscular Volume 84.6 fL (80.0-94.0); Mean Platelet Volume 9.4 fL (7.4-10.4); Platelet Count 243 10^3/uL (130-400); Red Blood Cell Count 3.83 10^6/uL (4.70-6.10); Red Cell Dist. Width 13.1 % (11.5-14.5)
--- NOTE | 2024-08-13 08:09 | W.PN.HOSP.TC ---
Addendum entered and electronically signed by Debbie Pineda MD 08/13/24 17:09:
total DC time 36 min
Addendum entered and electronically signed by Debbie Pineda MD 08/13/24 16:07:
I saw and evaluated the patient. I reviewed the resident�s note and agree with findings and plan as documented in the resident�s note.
A/P:
Ambulatory dysfunction--with frequent falls--no prodrome of syncope---His diabetic neuropathy might be contributing for his frequent falls?--patient reports right leg keeps giving out--Right knee x-ray: Moderate tricompartmental osteoarthritis--Head
CT: No acute intracranial abnormality noted with moderate atrophy[facility] Symptoms--post nasal drip, allergies?--CXR neg--WBC WNL, afebrile--Covid and Influenza: negative --cont mucinex and duonebs
diarrhea--neg for C. diff and norovirus
IDDM--AccuCheck AC & HS--[id number]--Patient plan on consulting shelter director as outpatient--Continue metformin--continue dulaglutide, Novolog 70/30 and Lantus
Essential hypertension-- continue HCTZ, lisinopril, and metoprolol
Hyperlipidemia-- continue atorvastatin
Paroxysmal atrial fibrillation--continue metoprolol --not on anticoagulation presumed due to falls
Code status: Full
DVT Proph: Lovenox sc
Original Note:
Today's Communication/Plan
-
Discharge to [facility]
Assessment / Plan
Assessment / Plan
79-year-old male past medical history of paroxysmal atrial fibrillation status post ablation, diabetes, hyperlipidemia, hypertension, presenting with weakness and left leg keeps giving out with knee discomfort. Also with cough and URI symptoms.
Awaiting placement at SNF/discharge today
Impression/plan
# Ambulatory dysfunction
Patient with history of frequent falls at home. No history of syncope.
His diabetic neuropathy might be contributing for his frequent falls.
patient reports right leg keeps giving out
Right knee x-ray: Moderate tricompartmental osteoarthritis.
Head CT: No acute intracranial abnormality noted.
Moderate atrophy
PT/OT consult�recommended SNF
#Diarrhea
3 episodes of watery stools yesterday, nonbloody.
White count normal, patient is afebrile
Stool sent for norovirus, C. difficile which came back negative.
Patient does not appear dehydrated.
Symptomatic management
Monitor.
#URI Symptoms
CXR: Moderate left lower lobe atelectasis versus scarring
White count normal, afebrile
Covid and Influenza: negative
Upper airway cough syndrome likely from postnasal drip
mucinex
DuoNebs as needed
#IDDM
AccuCheck AC & HS
SSI
[id number]
Patient plan on consulting shelter director as outpatient
Continue metformin
continue dulaglutide, Novolog 70/30 and Lantus
# Essential hypertension
continue HCTZ, lisinopril, and metoprolol
#Hyperlipidemia
continue atorvastatin
#Paroxysmal atrial fibrillation
continue metoprolol
Code status: Full
DVT Prophylaxis: Lovenox sc
Anticipated Discharge: Today
Subjective/Interval History
-
Date of Service: August 13, 2024
No acute overnight events
Objective Data
-
Labs:
Laboratory Results
08/13/24
07:26
WBC 8.0
Hgb 10.9 L
Hct 32.4 L
Plt Count 243
Sodium Pending
Potassium Pending
Chloride Pending
Carbon Dioxide Pending
BUN Pending
Creatinine Pending
Glucose Pending
Calcium Pending
Vital Signs:
Vital Signs
Temp Pulse Resp BP Pulse Ox
98.7 F 77 20 135/61 97
08/12/24 23:35 08/12/24 23:35 08/12/24 23:35 08/12/24 23:35 08/12/24 23:35
I&O
08/12/24 08/13/24 08/14/24
06:59 06:59 06:59
Intake Total 1680 / 1680 720 / 720
Output Total 300 / 300 550 / 550
Balance 1380 / 1380 170 / 170
Review of Systems
-
All other systems: Reviewed and negative
Constitutional: Reports Weakness
Respiratory: Reports Cough
Physical Exam
-
General: No Apparent Distress
HEENT: Normocephalic and Atraumatic
Respiratory: Clear to Auscultation
Cardiac: Regular Rhythm and S1/S2
GI: Soft, Nontender, Nondistended and Normal Bowel Sounds
Neuro: Awake, Alert, Oriented and AO x 3
Psych: Calm
[2024-08-13 08:38] LABS: Blood Urea Nitrogen 17 mg/dl (9-20); Calcium 8.1 mg/dl (8.4-10.2); Carbon Dioxide 28 mmol/L (22-30); Chloride 102 mmol/L (98-107); Estimated Creatinine Clearance 93 ml/min; Glucose 73 mg/dl (70-99); Potassium 3.8 mmol/L (3.5-5.1); Sodium 138 mmol/L (135-145); eGFR > 60.00
[2024-08-13] MEDS: NOVOLOG FLEXPEN-LOW RESISTANCE SC (08:44)
[2024-08-13] MEDS: MUCINEX 1200 MG PO (09:28)
[2024-08-13] MEDS: THERAGRAN 1 TABLET PO (09:28)
[2024-08-13] MEDS: ZESTRIL 40 MG PO (09:28)
[2024-08-13] MEDS: LOPRESSOR 50 MG PO (09:29)
[2024-08-13] MEDS: CARDURA 4 MG PO (09:32)
[2024-08-13] MEDS: ORETIC 25 MG PO (09:32)
[2024-08-13] MEDS: GLUCOPHAGE 1000 MG PO (09:32)
[2024-08-13] MEDS: DESENEX/MITRAZOL/ZEASORB 1 APPLIC TOPICAL (09:34)
[2024-08-13] MEDS: NOVOLOG MIX 70/30 FLEXPEN 60 UNITS SC (09:41)
[2024-08-13] MEDS: NOVOLOG MIX 70/30 FLEXPEN SC (09:46)
--- NOTE | 2024-08-13 10:50 | CM ---
Addendum entered by Alycia Knutson 08/13/24 14:57:
First available ambulance is 5:30, facility admissions updated and approved the transportation time.
Addendum entered by Alycia Knutson 08/13/24 14:26:
[phone]/fax and [phone]. Patient son is aware and auth approved for 08/13-08/17 # [id number] and ambulance forms faxed to [employer] unit [employer]er awaiting time of ambulance, facility is asking for prior to 5:30pm
Addendum entered by Alycia Knutson 08/13/24 11:10:
pended status with [facility]ail[facility] reference number [id number]. ELGIN called to Johana at [facility] [phone] and update provided. Await auth. CM requested call and report number, await response from facility.
Original Note:
Patient accepted at [facility], auth request sent to [facility], awaiting response.
[2024-08-13 12:08] LABS: Glucose - Point of Care 181 mg/dl (70-99)
[2024-08-13] MEDS: NOVOLOG FLEXPEN-LOW RESISTANCE 1 UNITS SC (12:10)
[2024-08-13 15:55] VITALS: BP 139/64
--- NOTE | 2024-08-13 16:37 | W.DCSUMMARY ---
Documented by User: Alfreda Mendez MD, Resident 08/13/24 16:46
Discharge Summary
Discharge Data
Date of Admission: 08/08/24
Date of Discharge: 08/13/24
-
Pending Results: No
Hospital Course
Discharging Physician : Dr. Miriam Lewis, Dr. Alfreda Mendez.
Disposition : SNF
Principal Discharge diagnosis : Ambulatory dysfunction
Chronic Discharge diagnosis : URI symptoms, IDDM, diarrhea, essential hypertension, hyperlipidemia, paroxysmal A-fib
Hospital Course : 79-year-old male with past medical history significant for hypertension, hyperlipidemia, IDDM, paroxysmal A-fib presented to the ED for evaluation of URI symptoms and lower extremity weakness. Patient reports multiple falls at
home in the previous few months. Patient also developed cough, mentioning about postnasal drip. No chest pain, nausea, vomiting, diarrhea or urinary symptoms. Right knee x-ray showed evidence of osteoarthritis. Head CT�no acute intracranial
abnormality. Chest x-ray showed moderate left lower lobe atelectasis/scarring. His white count was normal and he was afebrile. He tested negative for COVID and flu. He was symptomatically managed with Mucinex and DuoNebs. He has chronic
baseline anemia hemoglobin 11.7-10.9. No significant electrolyte abnormalities. His lower extremity weakness might be related to his diabetic neuropathy. His HbA1c was 6.9. Patient was monitored regularly and all his home medications were
continued. Patient's son was updated about his medical condition during his hospital stay. PT OT consult recommended SNF placement. Patient's vitals are stable and his condition has been clinically improved. Patient is stable to be discharged to
SNF.
Important imaging findings :
Right knee x-ray�moderate tricompartmental osteoarthritis
CT head�no acute intracranial abnormality.
Discharge Plan
-
Patient Disposition: [facility]sp/SNF
Discharge Diagnosis/Procedures: ambulatory dysfunction, Diabetes type 2, essential hypertension
Condition: Fair
Diet: Low Cholesterol and Diabetic, Carb Controlled
Activity: As tolerated
Driving Restrictions: As prior to admission
Bathing Restrictions: OK to Shower
Activity Restrictions/Additional Instructions:
Miconazole powder to coccyx crease, R buttocks rash, abdominal/groin folds affected areas bid. Tuck non woven gauze or ABD pad in abdominal folds, change as needed for moisture.
Bilateral knee high Tubigrip as tolerated; may remove at bedtime, reapply every morning.
Pressure redistributing chair cushion (i.e. Air or gel)
Elevate heels off bed with pillows.
Referrals:
NONE,* [Family Provider] -
Negrita Wood MD, Resident [Family Practice Resident Year2] - in one week
Prescriptions:
New
miconazole nitrate [Miconazorb AF] 2 % Powder
1 applic topical BIDPRN PRN (Reason: groin rash) Qty: 1 0RF
dextromethorphan-guaifenesin 10-100 mg/5 mL Syrup
10 ml PO Q4HPRN PRN (Reason: cough) Qty: 10 0RF
Continued
insulin glargine [Lantus U-100 Insulin] 1,000 UNITS/10 ML solution
30 unit SC HS
metformin 1,000 MG tablet
1,000 mg PO BID
doxazosin 4 MG tablet
4 mg PO DAILY
hydrochlorothiazide 25 MG tablet
25 mg PO DAILY
lisinopril 40 MG tablet
40 mg PO DAILY
insulin asp prt-insulin aspart [Novolog Mix 70-30 U-100 Insuln] 1,000 UNITS/10 ML solution
60 units SC BID
atorvastatin [Lipitor] 40 mg Tablet
40 mg PO HS
acetaminophen [Tylenol] 325 mg Tablet
650 mg PO Q6HPRN PRN (Reason: mild pain)
therapeutic multivitamin Tablet
1 tab PO DAILY
metoprolol tartrate [Lopressor] 50 mg Tablet
50 mg PO BID
Trulicity 0.75 mg/0.5 mL Pen Injector
0.75 mg SC TO
Discharge Orders:
Discharge Patient (As Directed); Ordered 08/13/24
Ordered By: Alfreda Mendez
Discharge Date and Time
Print Language: YORUBA

Documented by User: Debbie Pineda MD 08/13/24 17:09
Discharge Summary
Discharge Data
Date of Admission: 08/08/24
Date of Discharge: 08/13/24
Hospital Course
Discharging Physician : Dr. Miriam Lewis, Dr. Alfreda Mendez.
Disposition : SNF
Principal Discharge diagnosis : Ambulatory dysfunction
Chronic Discharge diagnosis : URI symptoms, IDDM, diarrhea, essential hypertension, hyperlipidemia, paroxysmal A-fib
Hospital Course : 79-year-old male with past medical history significant for hypertension, hyperlipidemia, IDDM, paroxysmal A-fib presented to the ED for evaluation of lower extremity weakness. Patient reports multiple falls at home in the previous
few months. Patient also developed cough, mentioning about postnasal drip. No chest pain, nausea, vomiting, diarrhea or urinary symptoms. Right knee x-ray showed evidence of osteoarthritis. Head CT� no acute intracranial abnormality. Chest
x-ray showed moderate left lower lobe atelectasis/scarring. His white count was normal and he was afebrile. He tested negative for COVID and flu. He was symptomatically managed with Mucinex and DuoNebs. He has chronic baseline anemia hemoglobin
11.7-10.9. No significant electrolyte abnormalities. His lower extremity weakness is likely related to his worsening diabetic neuropathy. His HbA1c was 6.9. PT OT consult recommended SNF placement. Patient was discharged to SNF.
Important imaging findings :
Right knee x-ray�moderate tricompartmental osteoarthritis
CT head�no acute intracranial abnormality.
Discharge Plan
-
Patient Disposition: [facility]/SNF
Discharge Diagnosis/Procedures: ambulatory dysfunction, Diabetes type 2, essential hypertension
Condition: Fair
Diet: Low Cholesterol and Diabetic, Carb Controlled
Activity: As tolerated
Driving Restrictions: As prior to admission
Bathing Restrictions: OK to Shower
Activity Restrictions/Additional Instructions:
Miconazole powder to coccyx crease, R buttocks rash, abdominal/groin folds affected areas bid. Tuck non woven gauze or ABD pad in abdominal folds, change as needed for moisture.
Bilateral knee high Tubigrip as tolerated; may remove at bedtime, reapply every morning.
Pressure redistributing chair cushion (i.e. Air or gel)
Elevate heels off bed with pillows.
Referrals:
NONE,* [Family Provider] -
Negrita Wood MD, Resident [Family Practice Resident Year2] - in one week
Prescriptions:
New
miconazole nitrate [Miconazorb AF] 2 % Powder
1 applic topical BIDPRN PRN (Reason: groin rash) Qty: 1 0RF
dextromethorphan-guaifenesin 10-100 mg/5 mL Syrup
10 ml PO Q4HPRN PRN (Reason: cough) Qty: 10 0RF
Continued
insulin glargine [Lantus U-100 Insulin] 1,000 UNITS/10 ML solution
30 unit SC HS
metformin 1,000 MG tablet
1,000 mg PO BID
doxazosin 4 MG tablet
4 mg PO DAILY
hydrochlorothiazide 25 MG tablet
25 mg PO DAILY
lisinopril 40 MG tablet
40 mg PO DAILY
insulin asp prt-insulin aspart [Novolog Mix 70-30 U-100 Insuln] 1,000 UNITS/10 ML solution
60 units SC BID
atorvastatin [Lipitor] 40 mg Tablet
40 mg PO HS
acetaminophen [Tylenol] 325 mg Tablet
650 mg PO Q6HPRN PRN (Reason: mild pain)
therapeutic multivitamin Tablet
1 tab PO DAILY
metoprolol tartrate [Lopressor] 50 mg Tablet
50 mg PO BID
Trulicity 0.75 mg/0.5 mL Pen Injector
0.75 mg SC TO
Discharge Orders:
Discharge Patient (As Directed); Ordered 08/13/24
Ordered By: Alfreda Mendez
Discharge Date and Time
Print Language: YORUBA
== END 2024-08-13 19:21 ==
LOC: 4 EAST ACU 19:38
PROVIDERS: Student in an Organized Health Care Education/Training Program; ADMITTING PHYSICIAN Hospitalist; ATTENDING PHYSICIAN Internal Medicine; EMERGENCY PHYSICIAN Emergency Medicine
DX: R53.1 Weakness (principal); R29.6 Repeated falls; I48.0 Paroxysmal atrial fibrillation; I10 Essential (primary) hypertension; E11.40 Type 2 diabetes mellitus with diabetic neuropathy, unspecified; E78.5 Hyperlipidemia, unspecified; J98.11 Atelectasis; R19.7 Diarrhea, unspecified; D64.9 Anemia, unspecified; R09.82 Postnasal drip; J98.4 Other disorders of lung; J06.9 Acute upper respiratory infection, unspecified; R05.9 Cough, unspecified; G31.9 Degenerative disease of nervous system, unspecified; M17.0 Bilateral primary osteoarthritis of knee; Z79.4 Long term (current) use of insulin; Z79.84 Long term (current) use of oral hypoglycemic drugs; Z79.85 Long-term (current) use of injectable non-insulin antidiabetic drugs; Z75.1 Person awaiting admission to adequate facility elsewhere; Z11.52 Encounter for screening for COVID-19; Z60.2 Problems related to living alone
CPT/HCPCS: 70450; 71046; 73564; 80048; 80053; 82962; 83036; 85025; 85027; 87324; 87449; 87502; 87798; 87811; 96360; 97116; 97163; 97167; 97530; 97535; 99285; G0378